=== PATIENT | male | born 1970 | race Caucasian/White ===

== ENCOUNTER 2024-07-24 02:40 | Emergency (ER) | payer OTHER | END 2024-07-24 04:59 | disposition home or self-care (01) | LOC: DL.ED 02:40 | DX: S46.212A Strain of muscle, fascia and tendon of other parts of biceps, left arm, initial encounter (principal); S46.912A Strain of unspecified muscle, fascia and tendon at shoulder and upper arm level, left arm, initial encounter; X58.XXXA Exposure to other specified factors, initial encounter | CPT/HCPCS: 73030-LT; 99282; 99283 ==

== ENCOUNTER 2025-04-23 05:59 | Emergency (ER) | payer OTHER | END 2025-04-23 06:39 | disposition home or self-care (01) | LOC: DL.ED 05:59 | DX: S46.002A Unspecified injury of muscle(s) and tendon(s) of the rotator cuff of left shoulder, initial encounter (principal); I10 Essential (primary) hypertension; E11.9 Type 2 diabetes mellitus without complications; Z88.1 Allergy status to other antibiotic agents; Z88.8 Allergy status to other drugs, medicaments and biological substances; Z79.84 Long term (current) use of oral hypoglycemic drugs; Z90.49 Acquired absence of other specified parts of digestive tract; X58.XXXA Exposure to other specified factors, initial encounter | CPT/HCPCS: 99283 ==

== ENCOUNTER 2025-05-20 02:49 | Emergency (ER) | payer OTHER ==
[2025-05-20 03:09] LABS: BASOPHILS PERCENT AUTO 0.5 % (0.0-1.0); EOSINOPHILS PERCENT AUTO 1.9 % (1.0-3.0); LYMPHOCYTES PERCENT AUTO 33.8 % (20.5-50.1); MONOCYTES PERCENT AUTO 8.2 % (2-8); NEUTROPHILS PERCENT AUTO 55.6 % (42.2-75.2); PLATELET COUNT,PLT 224 10^3/uL (150-450); RED BLOOD CELL COUNT 6.02 10^6/uL (4.6-6.2); WHITE BLOOD CELL COUNT,WBC 8.6 10^3/uL (5.0-10.0)
[2025-05-20] MEDS: GI Cocktail Oral Solution 30 ML PO ONE ×2 (03:14→05:22)
[2025-05-20] MEDS: Lactated Ringers 1,000 ML IV SCH (03:15)
[2025-05-20 03:35] LABS: A/G RATIO 1.0; ALANINE AMINOTRANSFERASE,ALT 42 U/L (16-63); ASPARTATE AMNIOTRANSFERASE,AST 18 U/L (15-37); BILIRUBIN TOTAL 0.9 mg/dL (0.2-1.0); BLOOD UREA NITROGEN,BUN 10 mg/dL (7-18); CARBON DIOXIDE,CO2 28 mmol/L (21-32); CHLORIDE,CL 96 mmol/L (98-107); CREATININE 0.91 mg/dL (0.70-1.30); EST CRCL DRUG DOSING (CG) 104.22 mL/min; GLUCOSE RANDOM 268 mg/dL (70-99); POTASSIUM,K 3.9 mmol/L (3.5-5.1); PROTEIN TOTAL,TP 7.4 g/dL (6.4-8.2); SODIUM,NA 135 mmol/L (136-145)
[2025-05-20 03:37] LABS: ESTIMATED GFR 101 mL/min (>=60)
== END 2025-05-20 05:22 | disposition home or self-care (01) ==
LOC: DL.ED 02:49
DX: K21.9 Gastro-esophageal reflux disease without esophagitis (principal); I10 Essential (primary) hypertension; E11.9 Type 2 diabetes mellitus without complications; Z90.49 Acquired absence of other specified parts of digestive tract; Z88.1 Allergy status to other antibiotic agents; Z88.5 Allergy status to narcotic agent; Z79.84 Long term (current) use of oral hypoglycemic drugs
CPT/HCPCS: 36415; 71045; 80053; 83690; 83735; 84484; 85025; 96361; 96374; 99284; A9270; J2470; J7120

== ENCOUNTER 2025-06-12 15:51 | Emergency (ER) | payer OTHER ==
[2025-06-12] MEDS ORDERED: Sodium Chloride 0.9% 10 ML Syringe FLUSH PRN (16:03)
[2025-06-12 16:20] LABS: BASOPHILS PERCENT AUTO 0.5 % (0.0-1.0); EOSINOPHILS PERCENT AUTO 1.2 % (1.0-3.0); LYMPHOCYTES PERCENT AUTO 27.8 % (20.5-50.1); MONOCYTES PERCENT AUTO 7.2 % (2-8); NEUTROPHILS PERCENT AUTO 63.3 % (42.2-75.2); PLATELET COUNT,PLT 227 10^3/uL (150-450); RED BLOOD CELL COUNT 5.74 10^6/uL (4.6-6.2); WHITE BLOOD CELL COUNT,WBC 7.4 10^3/uL (5.0-10.0)
[2025-06-12 16:42] LABS: A/G RATIO 1.0; ALANINE AMINOTRANSFERASE,ALT 42 U/L (16-63); ASPARTATE AMNIOTRANSFERASE,AST 28 U/L (15-37); BILIRUBIN TOTAL 0.7 mg/dL (0.2-1.0); BLOOD UREA NITROGEN,BUN 7 mg/dL (7-18); CARBON DIOXIDE,CO2 28 mmol/L (21-32); CHLORIDE,CL 97 mmol/L (98-107); CREATININE 0.94 mg/dL (0.70-1.30); EST CRCL DRUG DOSING (CG) 100.90 mL/min; POTASSIUM,K 4.3 mmol/L (3.5-5.1); PROTEIN TOTAL,TP 7.2 g/dL (6.4-8.2); SODIUM,NA 132 mmol/L (136-145)
[2025-06-12 16:43] LABS: ESTIMATED GFR 98 mL/min (>=60); GLUCOSE RANDOM 406 mg/dL (70-99)
== END 2025-06-12 18:00 | disposition home or self-care (01) ==
LOC: DL.ED 15:51
DX: E11.65 Type 2 diabetes mellitus with hyperglycemia (principal); I10 Essential (primary) hypertension; Z88.1 Allergy status to other antibiotic agents; Z88.5 Allergy status to narcotic agent; Z79.899 Other long term (current) drug therapy; Z90.49 Acquired absence of other specified parts of digestive tract
CPT/HCPCS: 36415; 80053; 82947; 83036; 83690; 83735; 84484; 85025; 96360; 99283; 99284; A9270; J7030